=== PATIENT | male | born 1965 | race Caucasian/White ===

== ENCOUNTER 2021-04-27 16:24 | Emergency (ER) | payer MEDICAID ==
[~2021-04-27] VITALS: Ht 170.2 cm; Wt 77.3 kg
[2021-04-27 16:33] VITALS: BP 136/102
[2021-04-27] MEDS ORDERED: SULF1TAB49 PO (16:39)
[2021-04-27] MEDS ORDERED: NAPR-56 PO (16:39)
[2021-04-27] MEDS ORDERED: AMOX1TAB87 PO (16:39)
== END 2021-04-27 18:27 | disposition home or self-care (01) ==
LOC: ER 16:27
DX: S61.254A Open bite of right ring finger without damage to nail, initial encounter (principal); L03.011 Cellulitis of right finger; M79.644 Pain in right finger(s); Z79.2 Long term (current) use of antibiotics; Z79.899 Other long term (current) drug therapy; W54.0XXA Bitten by dog, initial encounter; Y93.89 Activity, other specified; Y92.89 Other specified places as the place of occurrence of the external cause; Y99.8 Other external cause status
CPT/HCPCS: 99283

== ENCOUNTER 2021-04-29 11:09 | Emergency (ER) | payer MEDICAID ==
[~2021-04-29] VITALS: Ht 170.2 cm; Wt 77.0 kg
[~2021-04-29 11:09] MED LIST: AMOX1TAB87 PO; NAPR-56 PO; SULF1TAB49 PO
[2021-04-29 11:24] VITALS: BP 139/94
== END 2021-04-29 12:36 | disposition home or self-care (01) ==
LOC: ER 11:09
DX: L03.011 Cellulitis of right finger (principal); Z79.899 Other long term (current) drug therapy; Z48.00 Encounter for change or removal of nonsurgical wound dressing
CPT/HCPCS: 26010; 99283

== ENCOUNTER 2021-05-23 02:11 | Emergency (ER) | payer MEDICAID ==
[~2021-05-23] VITALS: Ht 170.2 cm; Wt 79.5 kg
[~2021-05-23 02:11] MED LIST changes: -AMOX1TAB87 PO; -SULF1TAB49 PO
[2021-05-23] MEDS ORDERED: sulfamethoxazole/trimethoprim DS (800/160mg) tablet PO ONE (03:10)
[2021-05-23] MEDS ORDERED: cephalexin 250mg capsule PO ONE (03:10)
[2021-05-23] MEDS ORDERED: SULF1TAB45 PO (03:10)
[2021-05-23] MEDS ORDERED: CEPH-585 PO (03:10)
[2021-05-23 03:41] VITALS: BP 140/74
== END 2021-05-23 03:42 | disposition home or self-care (01) ==
LOC: ER 02:12
DX: M79.644 Pain in right finger(s) (principal); Z59.00 Homelessness unspecified; Z79.2 Long term (current) use of antibiotics; Z79.899 Other long term (current) drug therapy
CPT/HCPCS: 73140; 99283

== ENCOUNTER 2021-10-20 19:01 | Emergency (ER) | payer MEDICAID ==
[~2021-10-20] VITALS: Ht 170.2 cm; Wt 72.0 kg
[~2021-10-20 19:01] MED LIST changes: +CEPH-585 PO; -NAPR-56 PO
[2021-10-20 20:23] VITALS: BP 129/90
== END 2021-10-20 21:53 | disposition home or self-care (01) ==
LOC: ER 19:02
DX: J34.89 Other specified disorders of nose and nasal sinuses (principal); Z53.21 Procedure and treatment not carried out due to patient leaving prior to being seen by health care provider
CPT/HCPCS: 99281

== ENCOUNTER 2022-04-08 11:25 | Emergency (ER) | payer MEDICAID ==
[~2022-04-08] VITALS: Ht 170.2 cm; Wt 64.3 kg
[2022-04-08 12:34] VITALS: BP 148/95
[2022-04-08] MEDS ORDERED: CefTRIAXone 1000mg IM Kit (w/lidocaine diluent) IM STA (13:12)
[2022-04-08] MEDS ORDERED: DOXYCYCLINE 100MG CAPSULE PO STA (13:13)
[2022-04-08 13:32] LABS: CLARITY,URINE SLIGHTLY CLOUDY (Clear); COLOR,URINE YELLOW (Yellow); GLUCOSE, URINE NEGATIVE (Neg); KETONES,URINE NEGATIVE (Neg); LEUKOCYTE ESTERASE ,URINE NEGATIVE (Neg); NITRITES, URINE NEGATIVE (Neg); OCCULT BLOOD,URINE SMALL (Neg); PH,URINE 6.5 (4.8-8.0); PROTEIN,URINE NEGATIVE (Neg); UROBILINOGEN,URINE 0.2 E.U/dL (0.2-1.0)
[2022-04-08 13:33] LABS: UA COLLECTION TYPE CLN CATCH MIDSTREAM
[2022-04-08 13:39] LABS: AMORPHOUS URATES 3+; BACTERIA,URINE FEW /HPF (Neg); MUCUS STRANDS NONE SEEN /LPF (Neg); RBC,URINE 0-2 /HPF (0-2); SPERM FEW /HPF (NEGATIVE); SQUAMOUS EPITHELIAL CELL,UR FEW /LPF (FEW); WBC,URINE 0-4 /HPF (0-4)
[2022-04-08] MEDS ORDERED: FLO0.4C PO (13:46)
[2022-04-08] MEDS ORDERED: DOXY100C76 PO (13:46)
== END 2022-04-08 14:02 | disposition home or self-care (01) ==
LOC: ER 11:25
DX: N49.2 Inflammatory disorders of scrotum (principal); R33.9 Retention of urine, unspecified; R36.9 Urethral discharge, unspecified; Z59.00 Homelessness unspecified; Z79.899 Other long term (current) drug therapy
CPT/HCPCS: 36415; 81001; 87491; 87591; 96372; 99283; J0696

== ENCOUNTER 2022-04-22 22:27 | Emergency (ER) | payer MEDICAID ==
[~2022-04-22] VITALS: Ht 170.2 cm; Wt 150.0 kg
[~2022-04-22 22:27] MED LIST changes: +FLO0.4C PO
[2022-04-22] MEDS ORDERED: LIDOcaine 2% 10ml TOPICAL JELLY (Urojet) TP ONE (23:55)
[2022-04-23 00:13] LABS: BASOPHILS % (AUTO) 0.6 % (0-1); EOSINOPHILS # (AUTO) 0.6 X10'3 (0-0.9); EOSINOPHILS % (AUTO) 7.7 % (0-6); HEMATOCRIT 40.7 % (42.0-52.0); HEMOGLOBIN 13.7 g/dl (14.0-17.9); LYMPHOCYTES # (AUTO) 1.5 X10'3 (1.1-4.8); LYMPHOCYTES % (AUTO) 19.3 % (21-51); MEAN CORPUSCULAR HGB CONC 33.5 g/dL (33.0-36.5); MEAN CORPUSCULAR VOLUME 92.6 FL (78-98); MEAN PLATELET VOLUME 9.2 FL (7.4-10.4); MONOCYTES # (AUTO) 0.7 X10'3 (0-0.9); MONOCYTES % (AUTO) 9.8 % (2-12); NEUTROPHILS # (AUTO) 4.7 X10'3 (1.8-7.7); NEUTROPHILS % (AUTO) 62.6 % (42-75); PLATELET COUNT 172 X10'3 (140-440); RED CELL DISTRIBUTION WIDTH 13.4 % (11.5-14.5); WHITE BLOOD COUNT 7.6 X10'3 (4.5-11.0)
[2022-04-23 00:22] LABS: ALANINE AMINOTRANSFERASE 33 U/L (12-78); ALBUMIN 4.1 G/DL (3.4-5.0); ALBUMIN/GLOBULIN RATIO 1.2 (1.1-1.5); ALKALINE PHOSPHATASE 100 IU/L (46-116); ANION GAP 9 (8-16); ASPARTATE AMINO TRANSFERASE 29 U/L (10-37); BILIRUBIN,TOTAL 0.3 MG/DL (0.1-1.0); BLOOD UREA NITROGEN 22 MG/DL (7-18); BUN/CREATININE RATIO 21.6 (5.4-32.0); CALCIUM 9.8 MG/DL (8.5-10.1); CHLORIDE 108 MMOL/L (99-107); CREATININE 1.02 MG/DL (0.60-1.10); GLUCOSE 104 MG/DL (70-104); POTASSIUM 4.4 MMOL/L (3.5-5.1); SODIUM 143 MMOL/L (135-145); TOTAL CARBON DIOXIDE 26.1 MMOL/L (24-32); TOTAL PROTEIN 7.5 G/DL (6.4-8.2); eGFR 75 ML/MIN
[2022-04-23 00:22] LABS: CLARITY,URINE CLEAR (Clear); COLOR,URINE YELLOW (Yellow); GLUCOSE, URINE NEGATIVE (Neg); KETONES,URINE NEGATIVE (Neg); LEUKOCYTE ESTERASE ,URINE NEGATIVE (Neg); NITRITES, URINE NEGATIVE (Neg); OCCULT BLOOD,URINE TRACE-INTACT (Neg); PH,URINE 6.5 (4.8-8.0); PROTEIN,URINE NEGATIVE (Neg); UA COLLECTION TYPE CLN CATCH MIDSTREAM; UROBILINOGEN,URINE 0.2 E.U/dL (0.2-1.0)
[2022-04-23] MEDS ORDERED: FLO0.4C PO (00:28)
[2022-04-23 00:35] LABS: BACTERIA,URINE NONE SEEN /HPF (Neg); RBC,URINE 0-2 /HPF (0-2); SQUAMOUS EPITHELIAL CELL,UR FEW /LPF (FEW); WBC,URINE NONE SEEN /HPF (0-4)
[2022-04-23 00:36] LABS: MUCUS STRANDS NONE SEEN /LPF (Neg); SPERM FEW /HPF (NEGATIVE)
[2022-04-23 00:53] VITALS: BP 147/94
== END 2022-04-23 00:56 | disposition home or self-care (01) ==
LOC: ER 22:28
DX: R33.9 Retention of urine, unspecified (principal); Z79.899 Other long term (current) drug therapy
CPT/HCPCS: 36415; 51702; 80053; 81001; 81003; 85025; 99284

== ENCOUNTER 2022-06-26 01:42 | Emergency (ER) | payer MEDICAID ==
[~2022-06-26] VITALS: Ht 170.2 cm; Wt 69.5 kg
[2022-06-26 01:46] VITALS: BP 146/89
[2022-06-26] MEDS: LIDOcaine 2% 10ml TOPICAL JELLY (Urojet) TP ONE ×2 (02:45→02:50)
[2022-06-26] MEDS ORDERED: tamsulosin 0.4mg capsule PO SCH (02:50)
--- NOTE | 2022-06-26 03:16 | NUR ---
Patient given MD ordered dose of Flowmax. Pt requested to delay catheter placement to give medication time to work.
[2022-06-26 04:20] LABS: BASOPHILS % (AUTO) 0.5 % (0-1); EOSINOPHILS # (AUTO) 0.1 X10'3 (0-0.9); EOSINOPHILS % (AUTO) 1.7 % (0-6); HEMATOCRIT 42.3 % (42.0-52.0); HEMOGLOBIN 13.7 g/dl (14.0-17.9); LYMPHOCYTES % (AUTO) 14.5 % (21-51); MEAN CORPUSCULAR HEMOGLOBIN 29.6 PG (27.0-31.0); MEAN CORPUSCULAR HGB CONC 32.3 g/dL (33.0-36.5); MEAN CORPUSCULAR VOLUME 91.5 FL (78-98); MEAN PLATELET VOLUME 9.2 FL (7.4-10.4); MONOCYTES # (AUTO) 0.7 X10'3 (0-0.9); MONOCYTES % (AUTO) 10.2 % (2-12); NEUTROPHILS # (AUTO) 5.3 X10'3 (1.8-7.7); NEUTROPHILS % (AUTO) 73.1 % (42-75); PLATELET COUNT 175 X10'3 (140-440); RED BLOOD COUNT 4.63 X10'6 (4.70-6.10); RED CELL DISTRIBUTION WIDTH 13.4 % (11.5-14.5); WHITE BLOOD COUNT 7.2 X10'3 (4.5-11.0)
--- NOTE | 2022-06-26 04:30 | NUR ---
Patient stated he was able to urinate. Patient continues to refuse catheter. He thinks he could urinate more if given a little time. Post void bladder scan <945.
[2022-06-26 04:33] LABS: ALANINE AMINOTRANSFERASE 26 U/L (12-78); ALBUMIN 4.4 G/DL (3.4-5.0); ALBUMIN/GLOBULIN RATIO 1.3 (1.1-1.5); ALKALINE PHOSPHATASE 92 IU/L (46-116); ANION GAP 7 (8-16); ASPARTATE AMINO TRANSFERASE 26 U/L (10-37); BILIRUBIN,TOTAL 0.6 MG/DL (0.1-1.0); BLOOD UREA NITROGEN 32 MG/DL (7-18); BUN/CREATININE RATIO 29.9 (5.4-32.0); CALCIUM 9.6 MG/DL (8.5-10.1); CHLORIDE 105 MMOL/L (99-107); CREATININE 1.07 MG/DL (0.60-1.10); GLUCOSE 100 MG/DL (70-104); POTASSIUM 4.3 MMOL/L (3.5-5.1); SODIUM 139 MMOL/L (135-145); TOTAL CARBON DIOXIDE 27.2 MMOL/L (24-32); TOTAL PROTEIN 7.9 G/DL (6.4-8.2); eGFR 71 ML/MIN
[2022-06-26 04:57] LABS: CLARITY,URINE TURBID (Clear); COLOR,URINE YELLOW (Yellow); GLUCOSE, URINE NEGATIVE (Neg); KETONES,URINE NEGATIVE (Neg); LEUKOCYTE ESTERASE ,URINE LARGE (Neg); NITRITES, URINE NEGATIVE (Neg); OCCULT BLOOD,URINE SMALL (Neg); PROTEIN,URINE NEGATIVE (Neg); UROBILINOGEN,URINE 0.2 E.U/dL (0.2-1.0)
[2022-06-26 05:01] LABS: UA COLLECTION TYPE CLN CATCH MIDSTREAM
[2022-06-26 05:03] LABS: WBC,URINE TNTC /HPF (0-4)
[2022-06-26] MEDS ORDERED: FLO0.4C PO (05:03)
[2022-06-26 05:04] LABS: BACTERIA,URINE FEW /HPF (Neg); SQUAMOUS EPITHELIAL CELL,UR FEW /LPF (FEW)
== END 2022-06-26 05:21 | disposition left against medical advice (07) ==
LOC: ER 01:42
DX: R33.9 Retention of urine, unspecified (principal); Z59.00 Homelessness unspecified
CPT/HCPCS: 36415; 80053; 81001; 85025; 87077; 87088; 87186; 99284; A4340; A4358

== ENCOUNTER 2022-07-22 16:01 | Emergency (ER) | payer MEDICAID ==
[~2022-07-22] VITALS: Ht 170.2 cm; Wt 79.0 kg
[~2022-07-22 16:01] MED LIST changes: -CEPH-585 PO
[2022-07-22 16:23] VITALS: BP 132/63
[2022-07-22] MEDS ORDERED: bacitracin 15gm ointment TP ONE (17:50)
== END 2022-07-22 18:24 | disposition home or self-care (01) ==
LOC: ER 16:01
DX: M79.644 Pain in right finger(s) (principal); F15.20 Other stimulant dependence, uncomplicated; Z59.00 Homelessness unspecified; Z56.0 Unemployment, unspecified
CPT/HCPCS: 99282

== ENCOUNTER 2022-08-13 08:29 | Emergency (ER) | payer MEDICAID ==
[~2022-08-13] VITALS: Ht 170.2 cm; Wt 70.5 kg
[2022-08-13] MEDS ORDERED: normal saline 1000ML IV soln IVB ONE (10:20)
[2022-08-13] MEDS ORDERED: pantoprazole 40 MG vial IV ONE (10:20)
[2022-08-13] MEDS ORDERED: ondansetron/PF 4mg/2ml inj IV ONE (10:20)
[2022-08-13 11:06] LABS: BASOPHILS % (AUTO) 0.2 % (0-1); EOSINOPHILS # (AUTO) 0.1 X10'3 (0-0.9); EOSINOPHILS % (AUTO) 1.2 % (0-6); HEMATOCRIT 44.3 % (42.0-52.0); HEMOGLOBIN 14.6 g/dl (14.0-17.9); LYMPHOCYTES # (AUTO) 0.8 X10'3 (1.1-4.8); MEAN CORPUSCULAR HEMOGLOBIN 30.5 PG (27.0-31.0); MEAN CORPUSCULAR HGB CONC 32.9 g/dL (33.0-36.5); MEAN CORPUSCULAR VOLUME 92.8 FL (78-98); MEAN PLATELET VOLUME 9.8 FL (7.4-10.4); MONOCYTES # (AUTO) 0.8 X10'3 (0-0.9); MONOCYTES % (AUTO) 8.9 % (2-12); NEUTROPHILS # (AUTO) 7.1 X10'3 (1.8-7.7); NEUTROPHILS % (AUTO) 80.7 % (42-75); PLATELET COUNT 175 X10'3 (140-440); RED BLOOD COUNT 4.77 X10'6 (4.70-6.10); RED CELL DISTRIBUTION WIDTH 13.6 % (11.5-14.5); WHITE BLOOD COUNT 8.8 X10'3 (4.5-11.0)
[2022-08-13 11:18] LABS: ALANINE AMINOTRANSFERASE 11 U/L (12-78); ALBUMIN 4.1 G/DL (3.4-5.0); ALBUMIN/GLOBULIN RATIO 1.1 (1.1-1.5); ALKALINE PHOSPHATASE 89 IU/L (46-116); ANION GAP 9 (8-16); ASPARTATE AMINO TRANSFERASE 12 U/L (10-37); BILIRUBIN,TOTAL 0.3 MG/DL (0.1-1.0); BLOOD UREA NITROGEN 23 MG/DL (7-18); BUN/CREATININE RATIO 25.3 (5.4-32.0); CHLORIDE 103 MMOL/L (99-107); CREATININE 0.91 MG/DL (0.60-1.10); GLUCOSE 110 MG/DL (70-104); LIPASE 192 U/L (73-393); MAGNESIUM 1.6 MG/DL (1.5-2.4); SODIUM 140 MMOL/L (135-145); TOTAL CARBON DIOXIDE 28.4 MMOL/L (24-32); TOTAL PROTEIN 7.9 G/DL (6.4-8.2); eGFR 85 ML/MIN
[2022-08-13 11:33] LABS: CLARITY,URINE CLOUDY (Clear); COLOR,URINE YELLOW (Yellow); GLUCOSE, URINE NEGATIVE (Neg); KETONES,URINE NEGATIVE (Neg); LEUKOCYTE ESTERASE ,URINE LARGE (Neg); NITRITES, URINE NEGATIVE (Neg); OCCULT BLOOD,URINE SMALL (Neg); PROTEIN,URINE NEGATIVE (Neg); UROBILINOGEN,URINE 0.2 E.U/dL (0.2-1.0)
[2022-08-13 11:36] LABS: UA COLLECTION TYPE VOIDED
[2022-08-13 11:38] LABS: WBC,URINE TNTC /HPF (0-4)
[2022-08-13 11:39] LABS: BACTERIA,URINE FEW /HPF (Neg); MUCUS STRANDS NONE SEEN /LPF (Neg); RBC,URINE 0-2 /HPF (0-2); SQUAMOUS EPITHELIAL CELL,UR NONE SEEN /LPF (FEW)
[2022-08-13 11:44] LABS: C DIFF SPECIMEN=DIARRHEA? ACCEPTABLE; C DIFFICILE TOXINS A&B NEGATIVE (Neg)
[2022-08-13] MEDS ORDERED: pantoprazole 40MG/NS 100ML BAG 100 ML IV ONE (11:45)
[2022-08-13] MEDS ORDERED: dicyclomine 10 MG capsule PO ONE (12:05)
[2022-08-13] MEDS ORDERED: amox tr/potassium clavulanate 875/125mg TAB PO ONE (12:05)
[2022-08-13] MEDS ORDERED: DICY10CA88 PO (12:14)
[2022-08-13] MEDS ORDERED: ONDA4TAB12 PO (12:14)
[2022-08-13] MEDS ORDERED: AMOX-117 PO (12:14)
[2022-08-13 12:58] VITALS: BP 125/88
== END 2022-08-13 13:28 | disposition home or self-care (01) ==
LOC: ER 08:30
DX: A08.4 Viral intestinal infection, unspecified (principal); E78.00 Pure hypercholesterolemia, unspecified; F41.9 Anxiety disorder, unspecified; F15.90 Other stimulant use, unspecified, uncomplicated; Z59.00 Homelessness unspecified; Z56.0 Unemployment, unspecified; Z79.899 Other long term (current) drug therapy
CPT/HCPCS: 36415; 80053; 81001; 83690; 83735; 85025; 87045; 87046; 87088; 87324; 87449; 89055; 96361; 96365; 96375; 99284; C9113; J2405; J7030; 87077; 87186